=== PATIENT | female | born 1945 | race Caucasian/White ===

== ENCOUNTER → 2016-11-30 | Outpatient (CLI) | payer MEDICARE, OTHER ==
--- NOTE | 2016-11-30 09:23 | REPMRS ---
Patient History The patient states she had a clinical breast exam in 11/2016. Patient is postmenopausal. Family history of colorectal cancer in paternal grandfather at age 50 or over. Digital Woman Screen Mammo: November 30, 2016 - Exam #: [id number] Bilateral CC and MLO view(s) were taken. Technologist: Kaylah Hernandez, Technologist Prior study comparison: November 27, 2015, digital woman screen mammo performed at [facility]. November 03, 2014, digital woman screen mammo performed at [facility]. October 10, 2013, digital woman screen mammo performed at [facility]. FINDINGS: There are scattered fibroglandular densities. There has been no change in the appearance of the mammogram from the prior studies. There is a mild amount of scattered fibroglandular density which is fairly symmetric. There is no interval development of dominant mass, architectural distortion, or clustered microcalcification suggestive of malignancy. ASSESSMENT: BI-RADS/ACR category 1 mammogram. Negative. Recommendation Routine screening mammogram in 1 year (for women over age 40). This mammogram was interpreted with the aid of an FDA-approved computer-aided dectection system. Electronically Signed By: Vignesh Stevenson MD 11/30/16 0981
== END ==
LOC: M WHC 08:35
PROVIDERS: ATTEND Nurse Practitioner Women's Health
DX: Z12.31 Encounter for screening mammogram for malignant neoplasm of breast (principal); Z78.0 Asymptomatic menopausal state
CPT/HCPCS: G0202; G0463

== ENCOUNTER → 2017-03-22 | Outpatient (REF) | payer MEDICARE, OTHER | LOC: M LAB REF 12:54 | DX: J02.9 Acute pharyngitis, unspecified (principal) | CPT/HCPCS: 87081 ==

== ENCOUNTER → 2017-12-01 | Outpatient (CLI) | payer MEDICARE, OTHER | LOC: M WHC 09:04 | DX: Z12.31 Encounter for screening mammogram for malignant neoplasm of breast (principal) | CPT/HCPCS: 77067 ==

== ENCOUNTER → 2018-12-03 | Outpatient (CLI) | payer MEDICARE, OTHER ==
--- NOTE | 2018-12-03 10:23 | REPMRS ---
Patient History The patient states she had a clinical breast exam in 11/2018. Family history of colorectal cancer at age 50 or over in paternal grandfather. 3D TOMOSYNTHESIS WAS PERFORMED. [facility] for [facility] is 3.[facility]%. Digital Woman Screen Mammo: December 03, 2018 - Exam #: [id number] Bilateral CC and MLO view(s) were taken. Technologist: Hayley Singh, Technologist Prior study comparison: December 01, 2017, bilateral digital woman screen mammo performed at [facility]. November 30, 2016, digital woman screen mammo performed at [facility]. FINDINGS: There are scattered fibroglandular densities. There has been no change in the appearance of the mammogram from the prior studies. There is a mild amount of residual fibroglandular tissue which is fairly symmetric. There is no interval development of dominant mass, architectural distortion, or clustered microcalcification suggestive of malignancy. Assessment: BI-RADS/ACR category 1 mammogram. Negative Mammogram. Recommendation Routine screening mammogram in 1 year (for women over age 40). This mammogram was interpreted with the aid of an FDA-approved computer-aided dectection system. Electronically Signed By: Aris Hutchinson MD 12/03/18 0351
== END ==
LOC: M WHC 08:38
PROVIDERS: ATTEND Nurse Practitioner Women's Health
DX: Z01.419 Encounter for gynecological examination (general) (routine) without abnormal findings (principal); Z12.31 Encounter for screening mammogram for malignant neoplasm of breast
CPT/HCPCS: 77063; 77067; G0101

== ENCOUNTER → 2019-03-09 | Outpatient (CLI) | payer MEDICARE, OTHER ==
--- NOTE | 2019-03-10 07:45 | REP ---
Lumbar spine series: Five views. History: Low back pain. Findings: Five views of the lumbar spine show preserved vertebral body heights and normal alignment. There is a mild dextroconvex curvature in the lumbar spine on the frontal view. No fracture or collapse is seen. There are diffuse degenerative disc changes. Disc space narrowing is most pronounced at 3-4 and 4-5, but there is some disc space narrowing at each lumbar level with discogenic spurring. There is no evidence of spondylolysis or spondylolisthesis. There is osteoarthritic facet hypertrophy and sclerosis on the right and L5-S1, L4-5, L3-4, and L2-3. On the left there is facet arthropathy at L5-S1 and L1-2. Sacrum and SI joints are intact. Psoas margins are symmetric. Impression: Degenerative spondylosis changes. Mild scoliosis. No acute bony abnormality. Electronically Signed by Leroy Stevenson MD 03/10/2019 08:47 A
== END ==
LOC: M WUC 16:56
PROVIDERS: ATTEND Physician Assistant
DX: M47.817 Spondylosis without myelopathy or radiculopathy, lumbosacral region (principal)

== ENCOUNTER → 2019-04-26 | Outpatient (CLI) | payer MEDICARE, OTHER ==
--- NOTE | 2019-04-26 16:10 | REPVR ---
PROCEDURE INFORMATION: Exam: CT Abdomen And Pelvis Without Contrast Exam date and time: 04/26/2019 3:24 PM Age: 74 years old Clinical indication: Condition or disease; Hernia; Without gangrene and without obstruction; Inguinal TECHNIQUE: Imaging protocol: Computed tomography of the abdomen and pelvis without contrast. Radiation optimization: All CT scans at this facility use at least one of these dose optimization techniques: automated exposure control; mA and/or kV adjustment per patient size (includes targeted exams where dose is matched to clinical indication); or iterative reconstruction. COMPARISON: No relevant prior studies available. FINDINGS: Liver: Normal. No mass. 1.4 cm cyst in the left hepatic lobe. Gallbladder and bile ducts: cholelithiasis. Pancreas: Normal. No ductal dilation. Spleen: Normal. No splenomegaly. Adrenals: Normal. No mass. Kidneys and ureters: 1.3 cm cyst at the lower pole of right kidney. Stomach and bowel: Diverticulosis of the sigmoid colon. Appendix: No evidence of appendicitis. Intraperitoneal space: Unremarkable. No free air. No significant fluid collection. Vasculature: Unremarkable. No abdominal aortic aneurysm. Lymph nodes: Unremarkable. No enlarged lymph nodes. Bladder: Unremarkable as visualized. Reproductive: Unremarkable as visualized. Bones/joints: Multilevel prominent Schmorl's nodes in the spine. Scoliosis of the lumbar spine. Grade 1 anterolisthesis of L4 over L5. Soft tissues: Unremarkable. Other findings: Diffuse demineralization of months. IMPRESSION: No acute abdominal or pelvic abnormality Electronically signed by: Masoud Dillard On 04/26/2019 16:11:26 PM
== END ==
LOC: M RAD 14:49
PROVIDERS: ATTEND Family Medicine
DX: K40.90 Unilateral inguinal hernia, without obstruction or gangrene, not specified as recurrent (principal)

== ENCOUNTER → 2019-12-05 | Outpatient (CLI) | payer MEDICARE, OTHER ==
--- NOTE | 2019-12-05 10:50 | REPMRS ---
Patient History The patient states she had a clinical breast exam in 2019. Family history of colorectal cancer at age 50 or over in paternal grandfather. 3D TOMOSYNTHESIS WAS PERFORMED. The Khalida Jones lifetime risk for breast cancer is 3.0%. HUBER Mixon. Digital Woman Screen Mammo: December 05, 2019 - Exam #: [id number] Bilateral CC and MLO view(s) were taken. Technologist: Lou Rodriguez, Technologist Prior study comparison: December 03, 2018, bilateral digital woman screen mammo performed at [facility]. December 01, 2017, bilateral digital woman screen mammo performed at [facility]. FINDINGS: There are scattered fibroglandular densities. There has been no change in the appearance of the mammogram from the prior studies. There is a mild amount of residual fibroglandular tissue which is fairly symmetric. There is no interval development of dominant mass, architectural distortion, or clustered microcalcification suggestive of malignancy. Assessment: BI-RADS/ACR category 1 mammogram. Negative Mammogram. Recommendation Routine screening mammogram in 1 year (for women over age 40). This mammogram was interpreted with the aid of an FDA-approved computer-aided dectection system. Electronically Signed By: Aris Hutchinson MD 12/05/19 2016
== END ==
LOC: M WHC 08:22
PROVIDERS: ATTEND Nurse Practitioner Women's Health
DX: Z12.31 Encounter for screening mammogram for malignant neoplasm of breast (principal)

== ENCOUNTER → 2020-10-01 | Outpatient (CLI) | payer MEDICARE, OTHER ==
[~2020-10-01] MED LIST: CVS1CAP2 PO; FISH1000 PO; MAGN250T7 PO; NOXI1TAB PO; TUME1CAP PO; VERA180C PO; VITMTA PO; ZOMI5TAB12 PO
== END ==
LOC: M LABSMTC 10:11
PROVIDERS: ATTEND Anesthesiology
DX: Z11.52 Encounter for screening for COVID-19 (principal)

== ENCOUNTER 2020-10-05 11:12 | Day surgery (SDC) | payer MEDICARE, OTHER ==
[~2020-10-05] VITALS: Ht 154.9 cm; Wt 59.4 kg
[~2020-10-05 11:12] MED LIST changes: +NS 1,000 ML IV SCH; -ZOMI5TAB12 PO
[2020-10-05] MEDS ORDERED: ZOMI5TAB12 PO (11:43)
[2020-10-05] MEDS ORDERED: LIDOCAINE 2% 100MG/5ML SDV (FOR ANES.) As Ordered ONE (12:46)
[2020-10-05] MEDS ORDERED: propofoL 200 MG/20 ML VIAL As Ordered ONE (12:46)
[2020-10-05 13:07] VITALS: BP 103/58
== END 2020-10-05 13:09 | disposition home or self-care (01) ==
LOC: M OPP 11:12
PROVIDERS: ATTEND Internal Medicine Gastroenterology
DX: Z12.11 Encounter for screening for malignant neoplasm of colon (principal); K64.0 First degree hemorrhoids; K57.30 Diverticulosis of large intestine without perforation or abscess without bleeding; M19.90 Unspecified osteoarthritis, unspecified site; G43.909 Migraine, unspecified, not intractable, without status migrainosus; Z88.8 Allergy status to other drugs, medicaments and biological substances; Z79.899 Other long term (current) drug therapy

== ENCOUNTER → 2020-12-18 | Outpatient (CLI) | payer MEDICARE, OTHER ==
[~2020-12-18] MED LIST changes: -NS 1,000 ML IV SCH; +ZOMI5TAB12 PO
--- NOTE | 2020-12-18 10:38 | REPMRS ---
Patient History The patient states she has not had a clinical breast exam in over a year. Family history of colorectal cancer at age 50 or over in paternal grandfather. Covid vaccines 03/2020 left arm. 04/2020 left arm. Patient states no breast complaints today. Patient has signed MRS History Sheet. Digital Woman Screen Mammo: December 18, 2020 - Exam #: [id number] Bilateral CC and MLO view(s) were taken. Technologist: RT Owen Prior study comparison: December 05, 2019, bilateral digital woman screen mammo performed at [facility]. December 03, 2018, bilateral digital woman screen mammo performed at [facility]. FINDINGS: The breast tissue is heterogeneously dense. This may lower the sensitivity of mammography. Screening. Digital screening (2D) mammography was performed bilaterally in the CC and MLO projections. Additionally, breast tomosynthesis (3D mammography) was performed bilaterally in the CC and MLO projections. Todays exam was compared to the prior exam/exams. By history, the patient has no complaints of a palpable breast abnormality or other significant breast complaints. The Volpara volumetric breast density category is C, the breasts are heterogenously dense which may obscure small masses. The breasts are unchanged in size and shape. There are no ashley-soft tissue densities or spiculated masses. There is no internal architectural distortion. There are no suspicious ashley-calcific clusters. Skin thickening or nipple retraction is not present. IMPRESSION: BI-RADS Category 2- Benign Findings. There is no evidence of malignant alteration of the breasts. Followup examination recommended in one year. This mammogram was read with the assistance of [employer] [facility],an FDA approved computer aided detection system for mammography. The lifetime Tyrer-Cuzick score is 2.7% Negative x-ray reports should not delay surgical consultation if a dominant or clinically suspicious mass is present. Not all breast cancers can be identified by mammography. Therefore, we recommend that you continue to perform regular breast self-examination and physical examination and then promptly contact your physician of any concerns or changes. Due to the density of the breasts, MRI/whole breast screening ultrasound is warranted. Adenosis and dense breasts may obscure an underlying neoplasm. No significant changes when compared with prior studies. Assessment: BI-RADS/ACR category 2 mammogram. Benign Findings. Recommendation Routine screening mammogram of both breasts in 1 year. Electronically Signed By: Leo Murphy MD 12/18/20 1037
== END ==
LOC: M WHC 09:20
PROVIDERS: ATTEND Nurse Practitioner Women's Health
DX: Z12.31 Encounter for screening mammogram for malignant neoplasm of breast (principal); R92.2 Inconclusive mammogram

== ENCOUNTER → 2021-12-21 | Outpatient (CLI) | payer MEDICARE, OTHER | LOC: M WHC 08:33 | PROVIDERS: ATTEND Family Medicine | DX: Z12.31 Encounter for screening mammogram for malignant neoplasm of breast (principal) ==

== ENCOUNTER → 2022-11-16 | Outpatient (CLI) | payer MEDICARE, OTHER | LOC: M PLARAD 14:11 | PROVIDERS: ATTEND Family Medicine | DX: M54.31 Sciatica, right side (principal) ==

== ENCOUNTER → 2023-12-27 | Outpatient (CLI) | payer MEDICARE, OTHER | LOC: M WHC 08:03 | PROVIDERS: ATTEND Family Medicine | DX: Z12.31 Encounter for screening mammogram for malignant neoplasm of breast (principal) ==

== ENCOUNTER → 2024-12-27 | Outpatient (CLI) | payer MEDICARE, OTHER | LOC: M WHC 08:09 | PROVIDERS: ATTEND Family Medicine | DX: Z12.31 Encounter for screening mammogram for malignant neoplasm of breast (principal) ==